=== PATIENT | female | born 1965 | race Caucasian/White ===

== ENCOUNTER → 2016-11-18 | Outpatient (CLI) | payer OTHER ==
--- NOTE | 2016-11-19 08:09 | MAMMOGRAPHY REPORT ---
BILATERAL DIGITAL SCREENING MAMMOGRAM TOMOSYNTHESIS WITH CAD: 11/18/2016 CLINICAL HISTORY: Routine screening examination. TECHNIQUE: Breast tomosynthesis in addition to standard 2D mammography was performed. Current study was also evaluated with a Computer Aided Detection (CAD) system. COMPARISON: Comparison is made to exams dated: 11/13/2014 mammogram, 11/15/2015 mammogram, 06/13/2013 u ltrasound, 06/13/2013 mammogram, 12/09/2012 ultrasound, and 12/09/2012 mammogram - [facility]. BREAST COMPOSITION: The tissue of both breasts is heterogeneously dense, which may obscure small mas ses. FINDINGS: There is a possible area of architectural distortion in the posterior 11:00 to 12:00 left breast, for which additional spot compression tomosynthesis views and possible ultrasound are recomme nded. If there is a possible cluster of microcalcifications in the lateral posterior right breast, w arranting additional spot magnification views. A focal asymmetry in the 12:00 far posterior right br east appears more angular compared to prior exams and additional spot compression tomosynthesis views with possible ultrasound is recommended. IMPRESSION: ACR BI-RADS CATEGORY 0: INCOMPLETE EVALUATION: NEED ADDITIONAL IMAGING EVALUATION The right lateral microcalcifications, right breast focal asymmetry and left breast possible area of distortion need additional imaging evaluation. The patient will be called to schedule an appointment. Approximately 10% of breast cancers are not detected with mammography. A negative mammographic report should not delay biopsy if a clinically suggestive mass is present. Monika Scott M.D. ay/:11/18/2016 16:24:29 Manufacturing Technology Professor: Shanae BINGHAM(Elyssa)(M), [facility] letter sent: Addl Imaging 0 BI-RADS Code: ACR BI-RADS Category 0: Incomplete Evaluation: Need Additional Imaging Evaluation
== END | disposition home or self-care (01) ==
LOC: C.MAMM 08:22
PROVIDERS: ATTEND Obstetrics & Gynecology
DX: Z12.31 Encounter for screening mammogram for malignant neoplasm of breast (principal); R92.0 Mammographic microcalcification found on diagnostic imaging of breast; N64.89 Other specified disorders of breast

== ENCOUNTER → 2016-11-20 | Outpatient (CLI) | payer OTHER ==
--- NOTE | 2016-11-20 15:58 | MAMMOGRAPHY REPORT ---
BILATERAL DIGITAL DIAGNOSTIC MAMMOGRAM TOMOSYNTHESIS: 11/20/2016 CLINICAL HISTORY: Callback from screening mammogram for bilateral asymmetries and possible right fransisca st calcifications. TECHNIQUE: Breast tomosynthesis in addition to standard 2D mammography was performed. Spot magnific ation right cc and ML views and spot compression bilateral CC and MLO 2-D and tomosynthesis images we re obtained. COMPARISON: Comparison is made to exams dated: 11/18/2016 mammogram, 11/15/2015 mammogram, 11/13/2014 m ammogram, 06/13/2013 mammogram, 04/29/2012 mammogram, and 04/26/2012 mammogram - [facility]. BREAST COMPOSITION: The tissue of both breasts is heterogeneously dense, which may obscure small mas ses. FINDINGS: The previously described area of questionable architectural distortion in the left 11 to 1 2:00 breast does not persist on the additional spot compression views, and is therefore compatible wi th normal fibroglandular tissue. Additionally, the asymmetry seen within the right 12:00 posterior b reast appears stable on spot compression views to multiple prior exams including the 2013 and 2012 ex am, and has the appearance of normal fibroglandular tissue on the tomosynthesis images without an ass ociated mass or architectural distortion noted. Given the long-term stability, the asymmetry is daphnie gn and compatible with normal fibroglandular tissue. Spot magnification views of the right breast demonstrate a small 5 mm cluster of faint punctate and a morphous calcifications in the right upper outer quadrant. The calcifications may have been present on prior full-field views from the 2015 and 2014 exams, however, the calcifications are not clearly s een on exams prior to 2014. While the calcifications may represent benign fibrocystic changes, they are indeterminate on imaging and stereotactic biopsy is recommended for further evaluation. Another small similar-appearing 2 mm cluster is seen within the right superior breast on the MLO view, powerhouse mechanic ior to the dominant cluster. A few other scattered punctate benign-appearing calcifications are also seen with on the spot magnification views. IMPRESSION: ACR BI-RADS CATEGORY 4: SUSPICIOUS 1. Small 5 mm cluster of faint calcifications in the right upper outer quadrant. The calcifications are indeterminate and stereotactic biopsy is recommended for further evaluation. A smaller 2 mm sim ilar-appearing cluster is seen more posteriorly in the right superior breast; management of this clus ter will be based on the pathology results. 2. The right 12:00 breast asymmetry effaces to a baseline appearance on the additional views. No pe rsistent architectural distortion is seen within the left breast on the additional views. Findings a re benign and compatible with normal fibroglandular tissue. A phone call was made to the physician's office to confirm faxed results were received. The patient has been verbally notified of the results. She tentatively scheduled the biopsy before [facility]. Approximately 10% of breast cancers are not detected with mammography. A negative mammographic report should not delay biopsy if a clinically suggestive mass is present. Yael Segundo M.D. ah/:11/20/2016 14:20:00 Bet Taker: Brandee BARBOZA)(Emanuel), [facility] letter sent: Abnormal 4/5 BI-RADS Code: ACR BI-RADS Category 4: Suspicious
== END | disposition home or self-care (01) ==
LOC: C.MAMM 13:02
PROVIDERS: ATTEND Obstetrics & Gynecology
DX: R92.1 Mammographic calcification found on diagnostic imaging of breast (principal); N64.89 Other specified disorders of breast

== ENCOUNTER → 2016-12-10 | Outpatient (CLI) | payer OTHER ==
--- NOTE | 2016-12-10 13:16 | Discharge Instructions ---
Discharge Instructions Procedure Procedure Date: Dec 10, 2016. Reason for visit: Right Calcs. Discharge Discharge Date: Dec 10, 2016. Discharge Diagnosis: status post breast biopsy Instructions Activity Recommendations: Additional Limitations (see below) Return to School/Work: no limitations Recommended Home Diet: No Limitations Provider Instructions: ACTIVITY RECOMMENDATIONS: * No lifting, pushing, pulling or exercising the affected side for three days. RETURN TO SCHOOL/WORK: * You may return to work/school after the procedure, but do not perform any strenuous activities for 24 to 48 hours. MEDICATIONS: * Tylenol (two 325 mg) every four to six hours if needed for mild pain (if not allergic to Tylenol). DIET: * Resume previous diet. SPECIAL CARE INSTRUCTIONS: * Keep biopsy site dry for 24 hours. May shower after 24 hours, but do not soak (bathe) incision. * May remove Tegaderm (plastic patch) tomorrow AFTER showering. * Leave the steri-strips on for one week. Allow the steri-strips to fall off by themselves. If not off after one week, you may remove them. You may place a Bandaid crosswise over the strips, if desired. * Apply ice 10 minutes on and 10 minutes off as needed. * Wear a bra at bedtime to sleep more comfortably for 2-3 days. * Your referring physician should have the results after approximately 5 to 7 business days. * Call for unusual bleeding, fever, drainage, etc or if you have any questions call during normal business hours or after hours call Dr Segundo, [phone]. FOLLOW UP VISIT: Follow-up with Referring Physician as scheduled. Allergies Coded Allergies: Ragweed (Unverified Allergy, Mild, SNEEZE, 05/31/02) POLLEN CATS DOGS HORSES DUST BEE STINGS [facility] Recommendations: Call your doctor if: * Temperature above 101 degrees * Pain not relieved by pain medicine ordered * There is increased drainage or redness from any incision * You have any unanswered questions or concerns. Your Doctors Instructions noted above were prepared by provider Yael Segundo. Patient Signature Section: Patient Instructions Signature Page Juliet Wilkes Patient (or Guardian) Signature/Date: I have read and understand the instructions given to me by my caregivers. Caregiver/RN/Doctor Signature/Date: The above-named patient and/or guardian has received patient instructions on this date. + Original Patient Signature Page (only) stays with chart. Please make copy for patient.
--- NOTE | 2016-12-10 15:47 | MAMMOGRAPHY REPORT ---
UNILATERAL RIGHT DIGITAL DIAGNOSTIC MAMMOGRAM: 12/10/2016 CLINICAL HISTORY: Status post right breast stereotactic biopsy. TECHNIQUE: Postprocedural right CC and LM views were obtained. COMPARISON: Comparison is made to exams dated: 11/20/2016 mammogram, 11/15/2015 mammogram, 11/13/2014 m ammogram, 06/13/2013 mammogram, 04/29/2012 mammogram, and 04/26/2012 mammogram - [facility] enter. BREAST COMPOSITION: The tissue of the right breast is heterogeneously dense, which may obscure small masses. FINDINGS: A new biopsy marker clip is seen at the site of the biopsied calcifications in the right up per outer quadrant. No significant postbiopsy hematoma is seen. IMPRESSION: POST PROCEDURE IMAGING FOR MARKER PLACEMENT New biopsy marker clip status post right breast stereotactic biopsy. Pathology results are pending. Approximately 10% of breast cancers are not detected with mammography. A negative mammographic report should not delay biopsy if a clinically suggestive mass is present. Yael Segundo M.D. ah/:12/10/2016 13:35:22 Lending Manager: Shanae Donnelly [facility] BI-RADS Code: Post Procedure Imaging For Marker Placement
== END | disposition home or self-care (01) ==
LOC: C.MAMM 12:40
PROVIDERS: ATTEND Obstetrics & Gynecology
DX: R92.1 Mammographic calcification found on diagnostic imaging of breast (principal); N62 Hypertrophy of breast; N60.11 Diffuse cystic mastopathy of right breast

== ENCOUNTER → 2017-03-11 | Outpatient (CLI) | payer OTHER ==
--- NOTE | 2017-03-11 14:43 | DIAGNOSTIC IMAGING REPORT ---
L-SPINE MIN 4 VIEWS ROUTINE HISTORY: Pain R10.9 Abdominal painM54.5 Low back [id number] COMPARISON: None. FINDINGS: There is no fracture. No subluxation. Disc spaces are preserved. IMPRESSION: No fracture or subluxation within the lumbar spine. The above report was generated using voice recognition software. It may contain grammatical, syntax or spelling errors. Electronically signed by: Jorge Goncalves M.D. 03/11/2017 2:41 PM Dictated Date/Time: 03/11/2017 2:39 PM
--- NOTE | 2017-03-11 14:44 | DIAGNOSTIC IMAGING REPORT ---
KUB CLINICAL HISTORY: R10.9 Abdominal painM54.5 Low back [id number] COMPARISON STUDY: No previous studies for comparison. FINDINGS: There is no pathologic bowel dilatation. There is scattered stool the colon. There is equivocal 4 mm calcification projected lateral to the mid point of the L4 and L5 transverse process tips. This is not clearly visualized on conventional radiographic study of the lumbar spine performed the same day. This is therefore likely related to overlying enteric contents IMPRESSION: No evidence of pathologic bowel dilatation. Electronically signed by: Vinicius Pabon M.D. 03/11/2017 2:43 PM Dictated Date/Time: 03/11/2017 2:41 PM
[2017-03-11 17:22] LABS: BASO % 0.9 %; BASO ABS # 0.06 K/uL (0-0.2); EOS % 0.8 %; EOS ABS # 0.05 K/uL (0-0.5); HEMATOCRIT 40.8 % (37-47); HEMOGLOBIN 14.4 g/dL (12.0-16.0); IG# 0.02 K/uL (0.00-0.02); LYMPH % 28.1 %; LYMPH ABS # 1.84 K/uL (1.2-3.4); MEAN CELL VOLUME 93.4 fL (80-100); MEAN CORPUSCULAR HGB CONC 35.3 g/dl (32-36); MEAN PLATELET VOLUME 11.2 fL (7.4-10.4); MONO % 7.3 %; MONO ABS # 0.48 K/uL (0.11-0.59); NEUT % 62.6 %; PLATELET COUNT 269 K/uL (130-400); RED CELL DISTRIBUTION WIDTH CV 11.8 % (11.5-14.5); WHITE BLOOD COUNT 6.55 K/uL (4.8-10.8)
[2017-03-11 17:33] LABS: ALT/SGPT 24 U/L (12-78); BLOOD UREA NITROGEN 8 mg/dl (7-18); CARBON DIOXIDE 30 mmol/L (21-32); CREATININE 0.72 mg/dl (0.60-1.20); GLUCOSE 72 mg/dl (70-99); LIPASE 190 U/L (73-393); POTASSIUM 3.6 mmol/L (3.5-5.1); SODIUM 141 mmol/L (136-145)
[2017-03-11 17:36] LABS: ALKALINE PHOSPHATASE 59 U/L (45-117); AST/SGOT 11 U/L (15-37); TOTAL PROTEIN 7.3 gm/dl (6.4-8.2)
== END | disposition home or self-care (01) ==
LOC: C.RADBC 14:21
PROVIDERS: ATTEND Physician Assistant Medical
DX: R10.9 Unspecified abdominal pain (principal); M54.5 Low back pain

== ENCOUNTER → 2017-07-03 | Outpatient (CLI) | payer OTHER | END | disposition home or self-care (01) | LOC: C.LAB1850 07:22 | PROVIDERS: ATTEND Nurse Practitioner Adult Health | DX: Z00.00 Encounter for general adult medical examination without abnormal findings (principal); Z13.29 Encounter for screening for other suspected endocrine disorder ==